=== PATIENT | female | born 1960 | race Asian ===

== ENCOUNTER 2021-08-20 18:38 | Emergency (ER) | payer OTHER ==
[2021-08-20] MEDS ORDERED: Sodium Chloride 0.9% 10 ML Syringe FLUSH PRN (19:32)
[2021-08-20] MEDS ORDERED: Ondansetron 4 MG/2 ML SDV IVPUSH ONE (19:35)
[2021-08-20] MEDS ORDERED: HYDROmorphone 0.5 MG/0.5 ML Syringe IVPUSH ONE (19:43)
[2021-08-20 20:24] LABS: ANION GAP 10.9 mEq/L (7-13); CHLORIDE,CL 104 mmol/L (98-107); SODIUM,NA 139 mmol/L (136-145)
[2021-08-20 20:30] LABS: ESTIMATED GFR 77 mL/min (>=60)
[2021-08-20] MEDS ORDERED: Iopamidol 612 MG/ML 100 ML Bottle IVPUSH ONE (20:52)
== END 2021-08-21 01:07 | disposition home or self-care (01) ==
LOC: DL.ED 18:38
DX: R10.84 Generalized abdominal pain (principal); R19.7 Diarrhea, unspecified; Z88.0 Allergy status to penicillin
CPT/HCPCS: 36415; 74018; 74177; 80053; 81001; 83605; 83690; 83735; 85025; 86140; 87040; 96374; 96375; 99284; J1170; J2405; Q9967